=== PATIENT | female | born 1980 | race Caucasian/White ===

== ENCOUNTER 2017-11-09 00:21 | Emergency (ER) | payer OTHER ==
[2017-11-09 00:34] VITALS: BP 160/92
--- NOTE | 2017-11-09 01:19 | ED ---
Throat Pain/Nasal Congestion - HPI Summary HPI Summary: Complains of left ear pain 3-4 days. Went to urgent care today, diagnosed with otitis externa, given antibiotic eardrops. States she thought the wick placed in her ear at urgent care had moved further into her ear and was causing more pain. Patient taking ibuprofen 800 mg for pain. Denies discharge, trismus , sore throat, fever, cough, n/v. - History of Current Complaint Chief Complaint: EDEarPain Time Seen by Provider: 11/09/17 01:02 Hx Obtained From: Patient Onset/Duration: Gradual Onset Severity: Worse Since: Associated Signs And Symptoms: Positive: Negative Cough: None Related History: Seasonal Allergies - Epiglottits Risk Factors Epiglottis Risk Factors: Negative - Allergies/Home Medications Allergies/Adverse Reactions: Allergies Allergy/AdvReac Type Severity Reaction Status Date / Time No Known Allergies Allergy Verified 11/09/17 00:34 Home Medications: Home Medications Adderall Xr 20 mg Capsule 20 mg PO DAILY 11/09/17 [History Confirmed 11/09/17] PMH/Surg Hx/FS Hx/Imm Hx Infectious Disease History: No Infectious Disease History: Denies: Traveled Outside the [place] in Last 30 Days - Social History Alcohol Use: None Substance Use Type: Reports: None Smoking Status (MU): Never Smoked Tobacco Review of Systems Constitutional: Negative Eyes: Negative Positive: Ear Ache Cardiovascular: Negative Respiratory: Negative Gastrointestinal: Negative Genitourinary: Negative Musculoskeletal: Negative Skin: Negative Neurological: Negative Psychological: Normal All Other Systems Reviewed And Are Negative: Yes Physical Exam - Summary Physical Exam Summary: No redness, swelling, tenderness to mastoid. Mild swelling of the face anterior and inferior to the left ear. Swollen left ear canal. No discharge noted. External ear nontender to palpation. No trismus. Oropharynx normal, uvula midline Triage Information Reviewed: Yes Vital Signs On Initial Exam: Initial Vitals Temp Pulse Resp BP Pulse Ox 98.8 F 84 16 160/92 97 11/09/17 00:30 11/09/17 00:30 11/09/17 00:30 11/09/17 00:30 11/09/17 00:30 Vital Signs Reviewed: Yes Appearance: Positive: Well-Appearing Skin: Positive: Warm Head/Face: Positive: Normal Head/Face Inspection Eyes: Positive: Normal ENT: Positive: Other Neck: Positive: Supple Respiratory/Lung Sounds: Positive: Clear to Auscultation Cardiovascular: Positive: Normal Abdomen Description: Positive: Nontender Musculoskeletal: Positive: Normal Neurological: Positive: Normal Psychiatric: Positive: Normal AVPU Assessment: Alert - [place] Coma Scale Best Eye Response: 4 - Spontaneous Best Motor Response: 6 - Obeys Commands Best Verbal Response: 5 - Oriented Coma Scale Total: 15 Diagnostics - Vital Signs Vital Signs Temp Pulse Resp BP Pulse Ox 11/09/17 00:30 98.8 F 84 16 160/92 97 - Laboratory Lab Statement: Any lab studies that have been ordered have been reviewed, and results considered in the medical decision making process. EENT Course/Dx - Course Course Of Treatment: Complains of left ear pain 3-4 days. Went to urgent care today, diagnosed with otitis externa, given antibiotic eardrops. States she thought the wick placed in her ear at urgent care had moved moved further into her ear and was causing more pain. Patient taking ibuprofen 800 mg for pain. Denies discharge, trismus, sore throat, fever, cough. Some mild facial swelling around the ear. Will add by mouth antibiotics and pain medication. - Diagnoses Provider Diagnoses: Otitis externa Discharge - Sign-Out/Discharge Documenting (check all that apply): Discharge/Admit/Transfer - Discharge Plan Condition: Stable Disposition: HOME Prescriptions: Amoxicillin/Clavulanate TAB* [Augmentin TAB 875*] 875 mg PO BID 5 Days #10 tab Tramadol HCl 50 mg PO TID 3 Days #8 tablet MDD 3 Patient Education Materials: Otitis Externa (ED) Referrals: Non Staff,Doctor [Primary Care Provider] - [facility] [Outside] Additional Instructions: Follow-up with primary care. Return to the ED for any new or worsening symptoms - Billing Disposition and Condition Condition: STABLE Disposition: HOME
[2017-11-09] MEDS ORDERED: Amoxicillin/Clavulanate TAB* 875 MG PO ONE (01:20)
[2017-11-09] MEDS ORDERED: Acetaminophen TAB* 325 MG PO ONE (01:20)
== END 2017-11-09 01:32 | disposition home or self-care (01) ==
LOC: ED 00:21
DX: H60.92 Unspecified otitis externa, left ear (principal)
CPT/HCPCS: 99282; A9270-GY